=== PATIENT | female | born 1995 | race Caucasian/White ===

== ENCOUNTER 2025-09-27 04:24 | Emergency (ER) | payer OTHER, MEDICAID ==
[~2025-09-27] VITALS: Ht 160 cm; Wt 66.0 kg
[2025-09-27 04:28] VITALS: BP 98/68; PULSE 85; RESP 18; TEMP 36.9; O2SAT 98
[2025-09-27] MEDS: TETANUS, DIPHTHERIA, PERTUSSIS VAC/PF 0.5ML (>10YR OLD) IM ONE (06:10)
== END 2025-09-27 06:11 | disposition left against medical advice (07) ==
LOC: ER 04:24
DX: S00.31XA Abrasion of nose, initial encounter (principal); V89.2XXA Person injured in unspecified motor-vehicle accident, traffic, initial encounter; Y93.89 Activity, other specified; Y92.89 Other specified places as the place of occurrence of the external cause; Y99.8 Other external cause status
CPT/HCPCS: 90715; 99283